=== PATIENT | female | born 1990 | race African-American/Black ===

== ENCOUNTER 2021-01-13 14:40 | Emergency (ER) | payer BC, MEDICAID, OTHER ==
[~2021-01-13] VITALS: Ht 170.2 cm; Wt 72.6 kg
[~2021-01-13 14:40] MED LIST: ONDA-144
[2021-01-13 14:42] VITALS: BP 117/66
== END 2021-01-13 16:14 | disposition home or self-care (01) ==
LOC: ER 14:40
DX: B35.3 Tinea pedis (principal)

== ENCOUNTER 2021-01-16 11:40 | Emergency (ER) | payer BC ==
[~2021-01-16] VITALS: Ht 170.2 cm; Wt 68.0 kg
[2021-01-16 15:04] VITALS: BP 113/64
== END 2021-01-16 14:32 | disposition home or self-care (01) ==
LOC: ER 11:40
DX: M79.672 Pain in left foot (principal)
CPT/HCPCS: 73630

== ENCOUNTER 2022-09-19 13:24 | Emergency (ER) | payer BC, OTHER ==
[~2022-09-19] VITALS: Ht 170.2 cm; Wt 72.0 kg
[2022-09-19 14:33] LABS: Urine WBC None Seen /hpf (0 - 5)
[2022-09-19 14:50] LABS: Basophils # (auto) 0 10 ^3/uL (0-0.2); Basophils % (auto) 0.6 % (0.0-2.0); Eosinophils # (auto) 0.1 10 ^3/uL (0-0.8); Eosinophils % (auto) 1.4 % (0.0-7.0); Hematocrit 39.5 % (36.0-46.0); Hemoglobin 13.3 g/dL (12.2-16.2); Lymphocytes # (auto) 2.8 10 ^3/uL (0.4-5.4); Lymphocytes % (auto) 45.3 % (10.0-50.0); Mean Corpuscular Hemoglobin 32.6 pg (28.0-32.0); Mean Corpuscular Hgb Conc. 33.8 g/dL (32.0-36.0); Mean Corpuscular Volume 96.6 fL (80.0-100.0); Monocytes # (auto) 0.5 10 ^3/uL (0-1.3); Monocytes % (auto) 8.4 % (0.0-12.0); Neutrophils # (auto) 2.8 10 ^3/uL (1.6-8.6); Neutrophils % (auto) 44.3 % (37.0-80.0); Nucleated Red Blood Cells % 0.1 %; Red Blood Cells 4.08 10^6/uL (4.0-5.20); Red Cell Distribution Width 13.4 % (11.8-14.3); White Blood Cell 6.3 10^3/uL (4.4-10.8)
[2022-09-19 15:04] LABS: Albumin 3.5 g/dL (3.4-5.0); Calcium 8.7 mg/dL (8.5-10.1); Potassium 3.9 mmol/L (3.5-5.1)
[2022-09-19 15:07] LABS: BUN/Creatinine Ratio 5.6
[2022-09-19 15:09] LABS: Urine Bacteria NONE SEEN /hpf (None Seen)
[2022-09-19 15:15] LABS: Bilirubin, Total 0.2 mg/dL (0.2-1.0); Total Protein 7.2 g/dL (6.4-8.2)
[2022-09-19] MEDS ORDERED: SODIUM CHLORIDE 0.9% 1,000 ML IV ONE (15:30)
[2022-09-19] MEDS ORDERED: SODIUM CHLORIDE 0.9% 500 ML IVB ONE (15:30)
[2022-09-19] MEDS ORDERED: ONDANSETRON HCL 4 MG/2 ML VIAL IV ONE (15:30)
[2022-09-19 15:36] LABS: Urine Specific Gravity 1.005 (1.001-1.035)
[2022-09-19 15:37] LABS: Urine Blood Normal /uL (Negative)
[2022-09-19 16:15] LABS: Alcohol, Urine < 3.0 mg/dL (0-10); Amphetamine Screen, Urine NEGATIVE (NEGATIVE); Barbiturate Scree,Urine NEGATIVE (NEGATIVE); Benzodiazephine Screen, Urine NEGATIVE (NEGATIVE); Cannabinoid Screen, Urine POSITIVE (NEGATIVE); Cocaine Screen, Urine NEGATIVE (NEGATIVE); Opiate Scree,Urine NEGATIVE (NEGATIVE); Phencyclidine Screen, Urine NEGATIVE (NEGATIVE)
[2022-09-19] MEDS ORDERED: ONDA-144 PO (18:29)
[2022-09-19 19:33] VITALS: BP 106/74
== END 2022-09-19 19:35 | disposition home or self-care (01) ==
LOC: ER 13:24
DX: O21.0 Mild hyperemesis gravidarum (principal); Z79.899 Other long term (current) drug therapy; Z88.8 Allergy status to other drugs, medicaments and biological substances; Z3A.09 9 weeks gestation of pregnancy
CPT/HCPCS: 36415; 76801; 80053; 80307; 81001; 83690; 83735; 84702; 85025; 96361; 96374; 99284; J2405; J7030; J7040

== ENCOUNTER 2023-12-03 05:26 | Emergency (ER) | payer OTHER ==
[~2023-12-03] VITALS: Ht 170.2 cm; Wt 72.9 kg
[~2023-12-03 05:26] MED LIST changes: +ONDA-144 PO
[2023-12-03 07:49] VITALS: BP 98/60; PULSE 83; RESP 83; TEMP 97.6; O2SAT 99
[2023-12-03] MEDS ORDERED: NAPR-957 PO (08:12)
[2023-12-03] MEDS ORDERED: PROM1SOL4 PO (08:12)
[2023-12-03] MEDS ORDERED: CYCL-839 PO (08:12)
== END 2023-12-03 08:20 | disposition home or self-care (01) ==
LOC: ER 05:26
DX: B34.9 Viral infection, unspecified (principal); F15.90 Other stimulant use, unspecified, uncomplicated